=== PATIENT | female | born 1930 | race Caucasian/White ===

== ENCOUNTER 2016-06-22 07:11 | Day surgery (SDC) | payer MEDICARE ==
[2016-06-17 13:37] VITALS: BP 129/77
[~2016-06-22] VITALS: Ht 157.5 cm; Wt 82.0 kg
[~2016-06-22 07:11] MED LIST: 5-HY100C PO; AMIT10TA PO; ASCO10007 PO; CALC-545 PO; CHLO1TAB26 PO; CHOL5000 PO; CINN500C2 PO; CRAN425C PO; DILT120T3 PO; FOLI0.8T2 PO; GABA600T2 PO; MAGN500T PO; MELA10CA PO; MULT-230 PO; PANT40TA5 PO; ROPI1TAB2 PO; TURM500C7 PO; VISION ESSENTIAL PO; VITA10004 PO
[2016-06-22] MEDS ORDERED: LACTATED RINGERS 1,000 ML IV SCH (07:48)
[2016-06-22] MEDS ORDERED: ACET500T76 PO (07:51)
[2016-06-22 07:52] VITALS: BP 129/77
[2016-06-22] MEDS ORDERED: FENTANYL PF 100 MCG/2ML ONE ×2 (08:44→10:26)
[2016-06-22] MEDS ORDERED: ONDANSETRON 2MG/ML, 2ML ONE (08:59)
[2016-06-22] MEDS ORDERED: PROPOFOL 10 MG/ML, 20ML ONE (08:59)
[2016-06-22] MEDS ORDERED: CEFAZOLIN 1,000 MG ONE (08:59)
[2016-06-22] MEDS ORDERED: DEXAMETHASONE 4 MG/ML, 1ML ONE (08:59)
[2016-06-22] MEDS ORDERED: ACETAMINOPHEN 325 MG TABLET PO PRN (09:30)
[2016-06-22] MEDS ORDERED: ONDANSETRON 2MG/ML, 2ML IVPush PRN (09:30)
[2016-06-22] MEDS ORDERED: OXYcodone 5 MG/5 ML ORAL.SOL UDC PO PRN (09:30)
[2016-06-22] MEDS ORDERED: HYDROmorphone 1 MG/ML, 1ML IV PRN (09:30)
[2016-06-22] MEDS ORDERED: HYDROcodone/APAP 7.5-325MG/15ML UDC PO PRN (09:30)
[2016-06-22] MEDS ORDERED: PROMETHAZINE 25 MG/ML, 1ML IV PRN (09:30)
[2016-06-22] MEDS ORDERED: HYDROcodone/APAP 7.5-325MG/15ML UDC ONE (10:26)
[2016-06-22] MEDS ORDERED: FENTANYL PF 100 MCG/2ML IV PRN (11:00)
== END 2016-06-22 13:00 | disposition home or self-care (01) ==
LOC: OUT 07:11
PROVIDERS: ATTEND Urology
DX: N30.21 Other chronic cystitis with hematuria (principal); Z87.440 Personal history of urinary (tract) infections; I48.91 Unspecified atrial fibrillation; K21.9 Gastro-esophageal reflux disease without esophagitis; Z86.73 Personal history of transient ischemic attack (TIA), and cerebral infarction without residual deficits; M19.90 Unspecified osteoarthritis, unspecified site; Z90.49 Acquired absence of other specified parts of digestive tract; Z87.891 Personal history of nicotine dependence; Z82.3 Family history of stroke; Z72.89 Other problems related to lifestyle
CPT/HCPCS: 52235; 88305; J0690; J1100; J2405; J2704; J3010; J7120